=== PATIENT | male | born 1965 | race Two or more races ===

== ENCOUNTER 2020-04-04 15:53 | Inpatient (IN) | payer BC ==
[~2020-04-04] VITALS: Ht 180.3 cm; Wt 111.0 kg
[2020-04-04] VITALS (8 sets, daily range): BP systolic 103–114; BP diastolic 64–70
[2020-04-04] MEDS ORDERED: SODIUM CHLORIDE 0.9% 1,000ML IVBOLUS ONE (17:00)
[2020-04-04] MEDS ORDERED: SODIUM CHLORIDE FLUSH 10ML SYR IVF ONE (17:00)
--- NOTE | 2020-04-04 17:01 | NUR ---
HEARING BECOMING IMPARED, FATIGUE AND FEELING SOB WITH LOSS OF APPETITE. IV FLUIDS INFUSING PER ORDERS.
[2020-04-04 17:19] LABS: CHLORIDE 100 mmol/L (98-107)
[2020-04-04 17:35] LABS: ALANINE AMINOTRANSFERASE 125 U/L (12-78); ALBUMIN 2.3 g/dL (3.4-5.0); ALKALINE PHOSPHATASE 112 U/L (45-117); ANION GAP 10 mmol/L (5-15); BILIRUBIN,TOTAL 1.2 mg/dL (0.2-1.0); CALCIUM 8.4 mg/dL (8.5-10.1); CREATININE 1.14 mg/dL (0.7-1.3); TOTAL PROTEIN 5.6 g/dL (6.4-8.2)
[2020-04-04 17:58] LABS: MEAN CORPUSCULAR HEMOGLOBIN 29.5 pg (27.5-34.5); MEAN CORPUSCULAR HGB CONC 34.1 g/dL (33.2-36.2); MEAN CORPUSCULAR VOLUME 86.4 fL (81-97); MEAN PLATELET VOLUME 11.7 fL (7.4-10.4); RED BLOOD COUNT 2.27 x10^6/uL (4.38-5.82); RED CELL DISTRIBUTION WIDTH 16.8 % (9.4-14.8)
[2020-04-04 17:59] LABS: PLATELET COUNT 25 x10^3/uL (130-400)
--- NOTE | 2020-04-04 18:00 | NUR ---
PT RESTING WITH AT BEDSIDE WHILE AWAITING DISPO, NO DISTRESS.
[2020-04-04 18:12] LABS: MD YES
[2020-04-04 18:13] LABS: BAND#(MANUAL) 0.06 x10^3/uL; BANDS%(MANUAL) 5 % (0-7); LYMPH#(MANUAL) 0.23 x10^3/uL (1-3.4); LYMPHS% (MANUAL) 21 % (22-44); METAMYELOCYTES# (MANUAL) 0.01 x10^3/uL (0-0); METAMYELOCYTES% (MANUAL) 1 % (0-1); MONOS% (MANUAL) 9 % (2-9); SEGS% (MANUAL) 64 % (42-75)
[2020-04-04 18:15] LABS: ANISOCYTOSIS 1+; MICROCYTOSIS 1+
[2020-04-04 18:17] LABS: <PLATELET ESTIMATE> DECREASED; LARGE PLATELETS 1+; OVALOCYTES 1+
[2020-04-04 18:46] LABS: MICROSCOPIC INDICATED
--- NOTE | 2020-04-04 19:00 | NUR ---
Report received from QUE Hankins. This RN to assume care.
--- NOTE | 2020-04-04 19:06 | NUR ---
REPORT TO MICHAEL GREY
[2020-04-04] MEDS ORDERED: SODIUM CHLORIDE 0.9% 1,000 ML IV ONE (19:40)
[2020-04-04] MEDS ORDERED: SODIUM CHLORIDE FLUSH 10ML SYR IVF PRN (20:00)
[2020-04-04] MEDS: SODIUM CHLORIDE 0.9% 1,000 ML IV SCH (20:21)
[2020-04-04 20:26] LABS: IRON LEVEL 182 mcg/dL (65-175); TOTAL IRON BINDING CAPACITY 181 mcg/dL (250-450)
[2020-04-04] MEDS ORDERED: ONDANSETRON ODT 4 MG PO PRN (20:30)
[2020-04-04] MEDS ORDERED: POLYETHYLENE GLYCOL 17 GM PACKET PO PRN (20:30)
[2020-04-04] MEDS ORDERED: BISACODYL 10 MG SUPP PR PRN (20:30)
[2020-04-04 20:35] LABS: % IRON SATURATION 101 % (20-55)
--- NOTE | 2020-04-04 21:09 | NUR ---
Report given to QUE Estes. Advised that patient is still receiving first unit of RBCs. Patient to be transferred to room 437.
[2020-04-04 21:27] LABS: ABSOLUTE RETICS # 0.026 x10^6/uL (0.5-1.5); RETICULOCYTE COUNT % 1.12 % (0.5-1.5)
[2020-04-04 21:28] LABS: BILIRUBIN, DIRECT 0.5 mg/dL (0.1-0.2); BILIRUBIN,INDIRECT 0.7 mg/dL (0.0-2.0); BILIRUBIN,TOTAL 1.2 mg/dL (0.2-1.0)
[2020-04-04 21:29] LABS: RED BLOOD COUNT 2.35 x10^6/uL (4.38-5.82)
[2020-04-04 21:52] LABS: D-DIMER (DIC) 4.19 ug/mlFEU (0.00-0.52); PROTIME 12.2 Seconds (9.6-11.5)
[2020-04-05] VITALS (10 sets, daily range): BP systolic 96–117; BP diastolic 59–71
[2020-04-05] MEDS: SODIUM CHLORIDE 0.9% 1,000 ML IV SCH ×2 (02:35→16:45)
[2020-04-05 05:05] LABS: CHLORIDE 104 mmol/L (98-107)
[2020-04-05 05:12] LABS: ALANINE AMINOTRANSFERASE 106 U/L (12-78); ALBUMIN 2.2 g/dL (3.4-5.0); ALKALINE PHOSPHATASE 112 U/L (45-117); ANION GAP 7 mmol/L (5-15); BILIRUBIN,TOTAL 1.5 mg/dL (0.2-1.0); CALCIUM 7.9 mg/dL (8.5-10.1); CREATININE 0.75 mg/dL (0.7-1.3); TOTAL PROTEIN 5.2 g/dL (6.4-8.2)
[2020-04-05 05:18] LABS: MEAN CORPUSCULAR HEMOGLOBIN 30.1 pg (27.5-34.5); MEAN CORPUSCULAR HGB CONC 33.9 g/dL (33.2-36.2); MEAN CORPUSCULAR VOLUME 88.8 fL (81-97); RED BLOOD COUNT 2.36 x10^6/uL (4.38-5.82); RED CELL DISTRIBUTION WIDTH 16.5 % (9.4-14.8)
[2020-04-05 06:17] LABS: MD YES
[2020-04-05 06:18] LABS: MEAN PLATELET VOLUME 10.4 fL (7.4-10.4)
[2020-04-05 06:19] LABS: PLATELET COUNT 27 x10^3/uL (130-400)
[2020-04-05 06:23] LABS: ANISOCYTOSIS 1+; BAND#(MANUAL) 0.02 x10^3/uL; BANDS%(MANUAL) 2 % (0-7); LYMPH#(MANUAL) 0.21 x10^3/uL (1-3.4); LYMPHS% (MANUAL) 21 % (22-44); MONOS#(MANUAL) 0.06 x10^3/uL (0.3-2.7); MONOS% (MANUAL) 6 % (2-9); OVALOCYTES 1+; REACTIVE LYMPHS # (MANUAL) 0.01 x10^3/uL (0-0); REACTIVE LYMPHS % (MANUAL) 1 % (0-0); SEGS% (MANUAL) 70 % (42-75)
[2020-04-05 06:25] LABS: <PLATELET ESTIMATE> DECREASED; LARGE PLATELETS 1+; MICROCYTOSIS 1+
[2020-04-05] MEDS: SENNA/DOCUSATE TABLET PO SCH (09:00)
[2020-04-05] MEDS ORDERED: FENTANYL PF 100 MCG/2ML ONE (09:12)
[2020-04-05] MEDS ORDERED: NALOXONE 1 MG/ML, 2ML ONE (09:12)
[2020-04-05] MEDS ORDERED: FLUMAZENIL 0.1 MG/1 ML, 5ML ONE (09:12)
[2020-04-05] MEDS ORDERED: MIDAZOLAM 1 MG/ML, 5ML ONE (09:13)
[2020-04-05] MEDS ORDERED: GADOTERATE 7.5 MMOL/15 ML SYR ONE (13:40)
[2020-04-05 17:03] LABS: D-DIMER (DIC) 5.42 ug/mlFEU (0.00-0.52); PROTIME 12.6 Seconds (9.6-11.5)
[2020-04-06] VITALS (7 sets, daily range): BP systolic 101–123; BP diastolic 58–74
[2020-04-06] MEDS: SODIUM CHLORIDE 0.9% 1,000 ML IV SCH (01:41)
[2020-04-06 05:22] LABS: CHLORIDE 107 mmol/L (98-107)
[2020-04-06 05:27] LABS: D-DIMER (DIC) 7.55 ug/mlFEU (0.00-0.52); PROTIME 12.6 Seconds (9.6-11.5)
[2020-04-06 05:32] LABS: ALANINE AMINOTRANSFERASE 102 U/L (12-78); ALKALINE PHOSPHATASE 182 U/L (45-117); ANION GAP 7 mmol/L (5-15); BILIRUBIN,TOTAL 1.7 mg/dL (0.2-1.0); CALCIUM 7.7 mg/dL (8.5-10.1); CREATININE 0.59 mg/dL (0.7-1.3)
[2020-04-06 05:59] LABS: MEAN CORPUSCULAR HEMOGLOBIN 30.1 pg (27.5-34.5); MEAN CORPUSCULAR HGB CONC 34.1 g/dL (33.2-36.2); MEAN CORPUSCULAR VOLUME 88.2 fL (81-97); MEAN PLATELET VOLUME 10.5 fL (7.4-10.4); RED BLOOD COUNT 2.22 x10^6/uL (4.38-5.82); RED CELL DISTRIBUTION WIDTH 16.2 % (9.4-14.8)
[2020-04-06 06:01] LABS: PLATELET COUNT 19 x10^3/uL (130-400)
[2020-04-06 06:02] LABS: MD YES
[2020-04-06 06:10] LABS: <PLATELET ESTIMATE> DECREASED; ANISOCYTOSIS 1+; BAND#(MANUAL) 0.01 x10^3/uL; BANDS%(MANUAL) 1 % (0-7); EOS#(MANUAL) 0.01 x10^3/uL (0.0-0.4); EOS% (MANUAL) 1 % (1-7); LYMPH#(MANUAL) 0.26 x10^3/uL (1-3.4); LYMPHS% (MANUAL) 24 % (22-44); METAMYELOCYTES# (MANUAL) 0.01 x10^3/uL (0-0); METAMYELOCYTES% (MANUAL) 1 % (0-1); MICROCYTOSIS 1+; MONOS#(MANUAL) 0.14 x10^3/uL (0.3-2.7); MONOS% (MANUAL) 13 % (2-9); OVALOCYTES 1+; SEG#(MANUAL) 0.66 x10^3/uL (1.8-6.8); SEGS% (MANUAL) 60 % (42-75)
[2020-04-06 06:11] LABS: LARGE PLATELETS 1+
[2020-04-06] MEDS: SENNA/DOCUSATE TABLET PO SCH (09:00)
[2020-04-07] VITALS (8 sets, daily range): BP systolic 113–140; BP diastolic 72–83
[2020-04-07 05:21] LABS: MEAN CORPUSCULAR HEMOGLOBIN 30.6 pg (27.5-34.5); MEAN CORPUSCULAR VOLUME 89.9 fL (81-97); MEAN PLATELET VOLUME 9.7 fL (7.4-10.4); RED BLOOD COUNT 2.24 x10^6/uL (4.38-5.82)
[2020-04-07] MEDS: SODIUM CHLORIDE 0.9% 1,000 ML IV SCH ×2 (05:27→20:02)
[2020-04-07 05:28] LABS: CHLORIDE 109 mmol/L (98-107)
[2020-04-07 05:48] LABS: ALANINE AMINOTRANSFERASE 87 U/L (12-78); ALBUMIN 1.9 g/dL (3.4-5.0); ALKALINE PHOSPHATASE 147 U/L (45-117); ANION GAP 8 mmol/L (5-15); BILIRUBIN,TOTAL 1.1 mg/dL (0.2-1.0); CALCIUM 7.8 mg/dL (8.5-10.1); CREATININE 0.58 mg/dL (0.7-1.3); TOTAL PROTEIN 4.9 g/dL (6.4-8.2)
[2020-04-07] MEDS ORDERED: DIPHENHYDRAMINE 25 MG CAPSULE PO PRN (06:30)
[2020-04-07] MEDS ORDERED: ACETAMINOPHEN 325 MG TABLET PO PRN (06:30)
[2020-04-07] MEDS ORDERED: ACETAMINOPHEN 325 MG TABLET PO ONE (06:30)
[2020-04-07 07:12] LABS: BASOPHILS # (AUTO) 0.02 x10^3/uL (0-0.1); BASOPHILS % (AUTO) 1 % (0-1); EOSINOPHILS % (AUTO) 0 % (1-7); LYMPHOCYTES # (AUTO) 0.48 x10^3/uL (1-3.4); LYMPHOCYTES % (AUTO) 33 % (22-44); MD MORPH REVIEW ONLY; MONOCYTES # (AUTO) 0.25 x10^3/uL (0.2-0.8); MONOCYTES % (AUTO) 17 % (2-9); NEUTROPHILS # (AUTO) 0.71 x10^3/uL (1.8-6.8); NEUTROPHILS % (AUTO) 49 % (42-75)
[2020-04-07 07:14] LABS: PLATELET COUNT 20 x10^3/uL (130-400)
[2020-04-07 07:17] LABS: ANISOCYTOSIS 1+
[2020-04-07 07:18] LABS: OVALOCYTES 1+
[2020-04-07 07:19] LABS: <PLATELET ESTIMATE> DECREASED; <PLT MORPHOLOGY> NORMAL PLT MORPH
[2020-04-07 08:04] LABS: PROTIME 12.9 Seconds (9.6-11.5)
[2020-04-07 08:38] LABS: D-DIMER (DIC) 10.35 ug/mlFEU (0.00-0.52)
[2020-04-07] MEDS: SENNA/DOCUSATE TABLET PO SCH (09:40)
[2020-04-08 00:37] VITALS: BP 119/74
[2020-04-08 05:09] LABS: ALBUMIN 1.9 g/dL (3.4-5.0); ANION GAP 6 mmol/L (5-15); CALCIUM 7.7 mg/dL (8.5-10.1); CHLORIDE 109 mmol/L (98-107); MEAN CORPUSCULAR HEMOGLOBIN 30.2 pg (27.5-34.5); MEAN CORPUSCULAR VOLUME 88.8 fL (81-97); MEAN PLATELET VOLUME 10.5 fL (7.4-10.4); RED BLOOD COUNT 2.47 x10^6/uL (4.38-5.82); RED CELL DISTRIBUTION WIDTH 15.9 % (9.4-14.8)
[2020-04-08 05:12] LABS: ALANINE AMINOTRANSFERASE 83 U/L (12-78); ALKALINE PHOSPHATASE 140 U/L (45-117); BILIRUBIN,TOTAL 1.3 mg/dL (0.2-1.0); CREATININE 0.53 mg/dL (0.7-1.3); TOTAL PROTEIN 5.2 g/dL (6.4-8.2)
[2020-04-08 05:39] LABS: PLATELET COUNT 26 x10^3/uL (130-400)
[2020-04-08 06:08] LABS: MD YES
[2020-04-08 06:12] LABS: ANISOCYTOSIS 1+; BAND#(MANUAL) 0.02 x10^3/uL; BANDS%(MANUAL) 1 % (0-7); LYMPHS% (MANUAL) 40 % (22-44); MONOS#(MANUAL) 0.15 x10^3/uL (0.3-2.7); MONOS% (MANUAL) 10 % (2-9); OVALOCYTES 1+; SEG#(MANUAL) 0.74 x10^3/uL (1.8-6.8); SEGS% (MANUAL) 49 % (42-75)
[2020-04-08 06:13] LABS: <PLATELET ESTIMATE> DECREASED; LARGE PLATELETS 1+
[2020-04-08 07:02] VITALS: BP 124/71
[2020-04-08] MEDS: SODIUM CHLORIDE 0.9% 1,000 ML IV SCH ×2 (08:39→22:09)
[2020-04-08] MEDS: SENNA/DOCUSATE TABLET PO SCH (08:39)
[2020-04-08 13:47] VITALS: BP 131/83
[2020-04-08 18:23] VITALS: BP 137/81
[2020-04-09 02:27] VITALS: BP 127/76
[2020-04-09 05:56] LABS: MD YES; MEAN CORPUSCULAR HEMOGLOBIN 30.4 pg (27.5-34.5); MEAN CORPUSCULAR HGB CONC 34.3 g/dL (33.2-36.2); MEAN CORPUSCULAR VOLUME 88.7 fL (81-97); RED BLOOD COUNT 2.39 x10^6/uL (4.38-5.82); RED CELL DISTRIBUTION WIDTH 16.4 % (9.4-14.8)
[2020-04-09 05:58] LABS: PLATELET COUNT 31 x10^3/uL (130-400)
[2020-04-09 06:01] LABS: ANISOCYTOSIS 1+; BAND#(MANUAL) 0.03 x10^3/uL; BANDS%(MANUAL) 2 % (0-7); LYMPH#(MANUAL) 0.45 x10^3/uL (1-3.4); LYMPHS% (MANUAL) 32 % (22-44); MONOS% (MANUAL) 14 % (2-9); OVALOCYTES 1+; SEG#(MANUAL) 0.73 x10^3/uL (1.8-6.8); SEGS% (MANUAL) 52 % (42-75)
[2020-04-09 06:02] LABS: <PLATELET ESTIMATE> DECREASED; LARGE PLATELETS 1+
[2020-04-09 07:45] VITALS: BP 140/83
[2020-04-09] MEDS: SENNA/DOCUSATE TABLET PO SCH (08:52)
[2020-04-09 09:13] LABS: ABSOLUTE RETICS # 0.016 x10^6/uL (0.5-1.5); RED BLOOD COUNT 2.67 x10^6/uL (4.38-5.82); RETICULOCYTE COUNT % 0.61 % (0.5-1.5)
[2020-04-09 09:20] LABS: CHLORIDE 111 mmol/L (98-107)
[2020-04-09 10:22] LABS: ALANINE AMINOTRANSFERASE 77 U/L (12-78); ALKALINE PHOSPHATASE 128 U/L (45-117); ANION GAP 7 mmol/L (5-15); CALCIUM 7.9 mg/dL (8.5-10.1); TOTAL PROTEIN 5.8 g/dL (6.4-8.2)
[2020-04-09] MEDS ORDERED: POTASSIUM CHLORIDE 20 MEQ TAB.ER.PRT PO ONE (10:30)
[2020-04-09 13:03] VITALS: BP 129/82
[2020-04-09 19:43] VITALS: BP 134/74
[2020-04-09] MEDS ORDERED: SODIUM CHLORIDE 0.9% 1,000 ML IV SCH (20:21)
[2020-04-10 02:54] VITALS: BP 141/89
[2020-04-10 05:25] LABS: CALCIUM 7.8 mg/dL (8.5-10.1); CHLORIDE 111 mmol/L (98-107)
[2020-04-10 05:31] LABS: ALANINE AMINOTRANSFERASE 68 U/L (12-78); ALBUMIN 1.9 g/dL (3.4-5.0); ALKALINE PHOSPHATASE 124 U/L (45-117); ANION GAP 5 mmol/L (5-15); CREATININE 0.58 mg/dL (0.7-1.3); TOTAL PROTEIN 5.9 g/dL (6.4-8.2)
[2020-04-10 06:07] LABS: MEAN CORPUSCULAR HEMOGLOBIN 30.2 pg (27.5-34.5); MEAN CORPUSCULAR HGB CONC 33.9 g/dL (33.2-36.2); MEAN CORPUSCULAR VOLUME 89.3 fL (81-97); MEAN PLATELET VOLUME 9.6 fL (7.4-10.4); RED BLOOD COUNT 2.57 x10^6/uL (4.38-5.82); RED CELL DISTRIBUTION WIDTH 16.6 % (9.4-14.8)
[2020-04-10 06:11] LABS: MD YES; PLATELET COUNT 33 x10^3/uL (130-400)
[2020-04-10 06:14] LABS: BAND#(MANUAL) 0.02 x10^3/uL; BANDS%(MANUAL) 1 % (0-7); LYMPH#(MANUAL) 0.32 x10^3/uL (1-3.4); LYMPHS% (MANUAL) 20 % (22-44); MONOS#(MANUAL) 0.14 x10^3/uL (0.3-2.7); MONOS% (MANUAL) 9 % (2-9); SEG#(MANUAL) 1.12 x10^3/uL (1.8-6.8); SEGS% (MANUAL) 70 % (42-75)
[2020-04-10 06:15] LABS: <PLATELET ESTIMATE> DECREASED; <PLT MORPHOLOGY> NORMAL PLT MORPH; ANISOCYTOSIS 1+; OVALOCYTES 1+
[2020-04-10] MEDS ORDERED: POTASSIUM CHLORIDE 20 MEQ TAB.ER.PRT PO ONE (08:30)
[2020-04-10 09:02] VITALS: BP 124/81
[2020-04-10] MEDS: SENNA/DOCUSATE TABLET PO SCH (09:37)
[2020-04-10] MEDS: CARVEDILOL 3.125 MG TABLET PO SCH ×2 (09:38→17:32)
[2020-04-10 09:41] LABS: D-DIMER 16.7 ug/mlFEU (0.00-0.52); INTERNATIONAL NORMALIZED RATIO 1.27 (0.93-1.1); PROTHROMBIN TIME 13.1 Seconds (9.6-11.5)
[2020-04-10 15:59] VITALS: BP 128/77
[2020-04-10 18:51] VITALS: BP 122/75
[2020-04-11 00:48] VITALS: BP 123/62
[2020-04-11 05:41] LABS: MEAN CORPUSCULAR HEMOGLOBIN 30.3 pg (27.5-34.5); MEAN CORPUSCULAR HGB CONC 33.9 g/dL (33.2-36.2); MEAN CORPUSCULAR VOLUME 89.4 fL (81-97); MEAN PLATELET VOLUME 9.8 fL (7.4-10.4); RED BLOOD COUNT 2.39 x10^6/uL (4.38-5.82)
[2020-04-11 05:47] LABS: PLATELET COUNT 36 x10^3/uL (130-400)
[2020-04-11 05:55] LABS: CHLORIDE 107 mmol/L (98-107)
[2020-04-11 06:02] LABS: ALANINE AMINOTRANSFERASE 55 U/L (12-78); ALBUMIN 1.8 g/dL (3.4-5.0); ALKALINE PHOSPHATASE 113 U/L (45-117); ANION GAP 7 mmol/L (5-15); CALCIUM 7.7 mg/dL (8.5-10.1); CREATININE 0.66 mg/dL (0.7-1.3); TOTAL PROTEIN 5.9 g/dL (6.4-8.2)
[2020-04-11] MEDS: CARVEDILOL 3.125 MG TABLET PO SCH (06:07)
[2020-04-11 06:14] VITALS: BP 102/67
[2020-04-11 06:14] LABS: MD YES
[2020-04-11 06:18] LABS: BAND#(MANUAL) 0.02 x10^3/uL; BANDS%(MANUAL) 1 % (0-7); LYMPH#(MANUAL) 0.34 x10^3/uL (1-3.4); LYMPHS% (MANUAL) 21 % (22-44); MONOS#(MANUAL) 0.16 x10^3/uL (0.3-2.7); MONOS% (MANUAL) 10 % (2-9); SEG#(MANUAL) 1.09 x10^3/uL (1.8-6.8); SEGS% (MANUAL) 68 % (42-75)
[2020-04-11 06:19] LABS: <PLATELET ESTIMATE> DECREASED; ANISOCYTOSIS 1+; LARGE PLATELETS 1+; OVALOCYTES 1+
[2020-04-11] MEDS: SENNA/DOCUSATE TABLET PO SCH (08:24)
[2020-04-11] MEDS ORDERED: CARV3.1212 PO (10:08)
[2020-04-11] MEDS ORDERED: Senna/Docusate PO (10:08)
== END 2020-04-11 11:40 | disposition home or self-care (01) | DRG 809 ==
LOC: ED 17:45 → EDIP 19:41 → 4NW 21:47 → DCLOUNGE 04-11 11:33
PROVIDERS: ADMIT Family Medicine; ATTEND Internal Medicine
PROC: 30233N1 Transfusion of Nonautologous Red Blood Cells into Peripheral Vein, Percutaneous Approach (ICD-10-PCS; principal; 2020-04-04)
PROC: 07DR3ZX Extraction of Iliac Bone Marrow, Percutaneous Approach, Diagnostic (ICD-10-PCS; 2020-04-05)
PROC: 30233R1 Transfusion of Nonautologous Platelets into Peripheral Vein, Percutaneous Approach (ICD-10-PCS; 2020-04-06)
DX: D61.818 Other pancytopenia (principal); D75.81 Myelofibrosis; E87.1 Hypo-osmolality and hyponatremia; N13.30 Unspecified hydronephrosis; E66.9 Obesity, unspecified; E83.119 Hemochromatosis, unspecified; E83.51 Hypocalcemia; E87.6 Hypokalemia; G47.00 Insomnia, unspecified; H91.93 Unspecified hearing loss, bilateral; I10 Essential (primary) hypertension; J32.9 Chronic sinusitis, unspecified; K76.0 Fatty (change of) liver, not elsewhere classified; Z20.828 Contact with and (suspected) exposure to other viral communicable diseases; Z80.0 Family history of malignant neoplasm of digestive organs; Z80.3 Family history of malignant neoplasm of breast; Z80.6 Family history of leukemia; Z68.34 Body mass index [BMI] 34.0-34.9, adult
CPT/HCPCS: 36415; 36430; 38222; 70450; 70553; 71045; 74018; 76700; 77012; 80053; 80074; 81001; 82247; 82248; 82330; 82607; 82728; 83010; 83540; 83550; 83615; 83735; 84550; 85025; 85045; 85049; 85060; 85379; 85384; 85610; 85730; 86644; 86645; 86705; 86850; 86880; 86900; 86923; 87086; 87806; 88305; 88311; 88313; 88341; 88342; 93005; 99156; 99157; 99291; G0378; J2250; J3010; A9575; G0475; J2310; J7030; P9016; P9035; P9040; Q0163

== ENCOUNTER 2020-04-17 15:35 | Outpatient (CLI) | payer BC ==
[~2020-04-17 15:35] MED LIST: CARV3.1212 PO; Senna/Docusate PO
== END 2020-04-17 23:59 | disposition home or self-care (01) ==
LOC: RAD 15:35
PROVIDERS: ATTEND Internal Medicine Hematology & Oncology
DX: I82.403 Acute embolism and thrombosis of unspecified deep veins of lower extremity, bilateral (principal); D75.81 Myelofibrosis
CPT/HCPCS: 93970

== ENCOUNTER 2020-04-28 15:03 | Inpatient (IN) | payer BC ==
[2020-04-28] VITALS (9 sets, daily range): BP systolic 115–130; BP diastolic 76–88
[~2020-04-28] VITALS: Ht 177.8 cm; Wt 119.9 kg
--- NOTE | 2020-04-28 15:26 | NUR ---
THIS IS A 55 YO MALE BIB [facility] FROM HOME FOR NEW ONSET JAUNDICE STARTING YESTERDAY PER FAMILY, MILD SOB/WEAKNESS, AND INCREASED CONFUSION OVER THE LAST FEW WEEKS. PATIENT A&OX4, MILD EXPIRATORY WHEEZES NOTED THROUGHOUT WITH MILDLY LABORED BREATHING, MAINTAINING 95-96% ON RA, PLACED ON 2L NC PER PATIENT REQUEST FOR COMFORT. PER [facility], PATIENT RECENTLY HAD BONE MARROW BX AND LIVER BX DONE AT [facility]. JAUNDICED NOTICED DIFFUSELY OVER BODY AND SCLERA. PRESSURE DRESSING ON RIGHT JUGLULAR FROM [facility] (MAYBE FROM BX) AND PADDED SACRAL DRESSING ON COCCYX FROM BONE MARROW BX, WHICH WAS SATURATED AND REMOVED, JOANNA FRIEDMAN TO EVALUATE WOUND. ALL MONITORING IN PLACE, VSS, NADN AT THIS TIME. CALL LIGHT IN REACH, PER [facility], FAMILY IN EN ROUTE, WILL OBTAIN MORE HX WHEN FAMILY HERE, PATIENT DOES NOT KNOW HIS MEDICAL HX/SURGICAL HX/MEDS.
[2020-04-28] MEDS ORDERED: SODIUM CHLORIDE FLUSH 10ML SYR IVF ONE (15:30)
[2020-04-28] MEDS ORDERED: SODIUM CHLORIDE 0.9% 1,000 ML IV ONE (15:30)
[2020-04-28 15:39] LABS: MEAN CORPUSCULAR HEMOGLOBIN 30.7 pg (27.5-34.5); RED BLOOD COUNT 2.24 x10^6/uL (4.38-5.82)
[2020-04-28 15:46] LABS: ALANINE AMINOTRANSFERASE 494 U/L (12-78); ALBUMIN 1.1 g/dL (3.4-5.0); ANION GAP 14 mmol/L (5-15); CALCIUM 7.8 mg/dL (8.5-10.1); CHLORIDE 111 mmol/L (98-107); CREATININE 1.53 mg/dL (0.7-1.3)
[2020-04-28 15:50] LABS: ALKALINE PHOSPHATASE 130 U/L (45-117); TOTAL PROTEIN 4.5 g/dL (6.4-8.2)
[2020-04-28 16:11] LABS: BILIRUBIN,TOTAL 20.1 mg/dL (0.2-1.0)
[2020-04-28 16:22] LABS: PLATELET COUNT 13 x10^3/uL (130-400)
[2020-04-28 16:23] LABS: MD YES
--- NOTE | 2020-04-28 16:23 | NUR ---
CRITICAL VALUES REPORTED TO PROVIDER
[2020-04-28] MEDS ORDERED: SODIUM CHLORIDE 0.9% 1,000ML IVBOLUS ONE (16:30)
[2020-04-28] MEDS ORDERED: CEFTRIAXONE PMX 1GM/50ML 50 ML IVPB ONE (16:30)
--- NOTE | 2020-04-28 16:30 | NUR ---
PATIENT TO CT
--- NOTE | 2020-04-28 16:30 | NUR ---
UA COLLECTED AND SENT
[2020-04-28 16:33] LABS: BAND#(MANUAL) 0.02 x10^3/uL; BANDS%(MANUAL) 3 % (0-7); SEG#(MANUAL) 0.71 x10^3/uL (1.8-6.8); SEGS% (MANUAL) 89 % (42-75)
--- NOTE | 2020-04-28 16:35 | NUR ---
PER BLOOD BANK "PATIENT HAS HX ANTIBODY, HE HAS UNDERTERMINED ANTIBODIES SO IT WILL TAKE LONGER THAN NORMAL FOR THE SCREENING". NOTIFIED
[2020-04-28 16:37] LABS: LYMPH#(MANUAL) 0.05 x10^3/uL (1-3.4); LYMPHS% (MANUAL) 6 % (22-44); MONOS#(MANUAL) 0.02 x10^3/uL (0.3-2.7); MONOS% (MANUAL) 2 % (2-9)
[2020-04-28 16:40] LABS: ANISOCYTOSIS 1+; OVALOCYTES 1+; POLYCHROMASIA 1+
[2020-04-28 16:41] LABS: <PLATELET ESTIMATE> DECREASED
--- NOTE | 2020-04-28 16:42 | NUR ---
PER DR. ROBERTS, CANCELLING ORDER FOR ABX, NO SUSPECTED SOURCE OF INFECTION, SIRS CRITERIA RESULT OF BONE MARROW SUPPRESSION, LIVER FAILURE, AND UNKNOWN POTENTIAL CANCER.
--- NOTE | 2020-04-28 16:48 | NUR ---
PER , PATIENT HAS ONCOLOGY APPT THURSDAY, [facility] HAD SENT BX TO [place] AND WAITING FOR RESULTS.
[2020-04-28 16:52] LABS: MICROSCOPIC INDICATED
--- NOTE | 2020-04-28 18:00 | NUR ---
PLATELET INFUSION STARTED. VERIFIED WITH QUE SANDOVAL
--- NOTE | 2020-04-28 18:16 | NUR ---
PLATELET INFUSION COMPLETE. NO REACTION NOTED. VSS.
--- NOTE | 2020-04-28 18:33 | NUR ---
CALL PLACED TO BLOOD BANK, STILL WAITING ON ANTIBODY TEST TO BE COMPLETED
--- NOTE | 2020-04-28 19:26 | NUR ---
TASK RN: BLOOD REQUEST SENT TO BB. REPORT TO ONC QUE CAMPBELL. PT PREPARED FOR TRANSPORT POST BLOOD.
--- NOTE | 2020-04-28 19:45 | NUR ---
TASK RN: BLOOD INITIATED. PT/SO MADE AWARE OF S/S OF TRANSFUSION RXN AND AGREE TO NOTIFY STAFF OF ANY OCCURENCE. BLOOD CONSENT SIGNED AND WITNESSED BY PRIMARY RN CLIFTON Vora PRIOR TO BLOOD ADMINISTRATION Addendum: 04/28/20 at 1948 by LWEGENER NEUTROPENIC PRECAUTIONS IN PLACE
--- NOTE | 2020-04-28 19:57 | NUR ---
TASK RN: NO S/S OF TRANSFUSION REACTION. PT DENIES PAIN, VSS. LUNGS CLEAR TO AUSCULTATION
[2020-04-28] MEDS ORDERED: NYST1000 PO (20:28)
[2020-04-28] MEDS ORDERED: ONDANSETRON 2MG/ML, 2ML IVPush PRN (20:30)
[2020-04-28] MEDS ORDERED: HYDROmorphone 2 MG/ML, 1ML IVPush PRN (20:30)
[2020-04-28] MEDS ORDERED: DOCUSATE 100 MG CAPSULE PO PRN (20:30)
[2020-04-28] MEDS ORDERED: PRED5TAB19 PO (20:30)
[2020-04-28] MEDS ORDERED: OXYcodone IR 5MG TABLET PO PRN (20:30)
[2020-04-28] MEDS ORDERED: LIDODERM 5% PATCH TD PRN (20:30)
[2020-04-28] MEDS ORDERED: LACTATED RINGERS 1,000 ML IV SCH (20:30)
[2020-04-28] MEDS ORDERED: MELATONIN 5 MG TABLET PO PRN (20:30)
[2020-04-28] MEDS ORDERED: SODI650T PO (20:49)
[2020-04-28] MEDS ORDERED: SODIUM BICARBONATE 8.4% 100 MEQ in DEXTROSE 5% 1,000 ML IV SCH (22:00)
[2020-04-29] VITALS (9 sets, daily range): BP systolic 109–130; BP diastolic 72–84
[2020-04-29 04:40] LABS: MEAN CORPUSCULAR HEMOGLOBIN 31.2 pg (27.5-34.5); MEAN CORPUSCULAR HGB CONC 34.4 g/dL (33.2-36.2); MEAN PLATELET VOLUME 10.1 fL (7.4-10.4); RED BLOOD COUNT 2.18 x10^6/uL (4.38-5.82); RED CELL DISTRIBUTION WIDTH 17.6 % (9.4-14.8)
[2020-04-29 04:43] LABS: ALANINE AMINOTRANSFERASE 497 U/L (12-78); ALBUMIN 1.1 g/dL (3.4-5.0); ANION GAP 13 mmol/L (5-15); CALCIUM 7.7 mg/dL (8.5-10.1); CHLORIDE 113 mmol/L (98-107)
[2020-04-29 04:45] LABS: ALKALINE PHOSPHATASE 118 U/L (45-117)
[2020-04-29 04:54] LABS: PLATELET COUNT 11 x10^3/uL (130-400)
[2020-04-29 05:07] LABS: CREATININE 1.59 mg/dL (0.7-1.3)
[2020-04-29 05:08] LABS: TOTAL PROTEIN 4.1 g/dL (6.4-8.2)
[2020-04-29 06:06] LABS: MD YES
[2020-04-29 06:14] LABS: SEG#(MANUAL) 0.61 x10^3/uL (1.8-6.8); SEGS% (MANUAL) 87 % (42-75)
[2020-04-29 06:15] LABS: BAND#(MANUAL) 0.01 x10^3/uL; BANDS%(MANUAL) 1 % (0-7); LYMPH#(MANUAL) 0.05 x10^3/uL (1-3.4); LYMPHS% (MANUAL) 7 % (22-44); MONOS#(MANUAL) 0.04 x10^3/uL (0.3-2.7); MONOS% (MANUAL) 5 % (2-9)
[2020-04-29 06:16] LABS: ANISOCYTOSIS 1+; OVALOCYTES 1+; POLYCHROMASIA 1+
[2020-04-29 06:17] LABS: <PLATELET ESTIMATE> DECREASED; <PLT MORPHOLOGY> NORMAL PLT MORPH
[2020-04-29 12:32] LABS: MEAN CORPUSCULAR HEMOGLOBIN 30.9 pg (27.5-34.5); MEAN CORPUSCULAR HGB CONC 34.6 g/dL (33.2-36.2); MEAN PLATELET VOLUME 10.1 fL (7.4-10.4)
[2020-04-29 12:46] LABS: PLATELET COUNT 11 x10^3/uL (130-400)
[2020-04-29 13:09] LABS: MD YES
[2020-04-29 13:12] LABS: LYMPH#(MANUAL) 0.07 x10^3/uL (1-3.4); LYMPHS% (MANUAL) 10 % (22-44); METAMYELOCYTES# (MANUAL) 0.01 x10^3/uL (0-0); METAMYELOCYTES% (MANUAL) 2 % (0-1); MONOS#(MANUAL) 0.01 x10^3/uL (0.3-2.7); MONOS% (MANUAL) 2 % (2-9); SEGS% (MANUAL) 86 % (42-75)
[2020-04-29 13:13] LABS: ANISOCYTOSIS 1+; OVALOCYTES 1+; POLYCHROMASIA 1+
[2020-04-29 13:14] LABS: MICROCYTOSIS 1+
[2020-04-29 13:15] LABS: <PLATELET ESTIMATE> DECREASED; <PLT MORPHOLOGY> NORMAL PLT MORPH; ECHINOCYTES 1+
[2020-04-30 00:47] VITALS: BP 120/78
[2020-04-30 06:11] LABS: MEAN CORPUSCULAR HEMOGLOBIN 31.1 pg (27.5-34.5); MEAN CORPUSCULAR HGB CONC 34.5 g/dL (33.2-36.2); MEAN PLATELET VOLUME 9.9 fL (7.4-10.4); RED BLOOD COUNT 2.71 x10^6/uL (4.38-5.82); RED CELL DISTRIBUTION WIDTH 17.6 % (9.4-14.8)
[2020-04-30 06:15] LABS: ALANINE AMINOTRANSFERASE 592 U/L (12-78); ALBUMIN 1.2 g/dL (3.4-5.0); ANION GAP 15 mmol/L (5-15); CALCIUM 8.2 mg/dL (8.5-10.1); CHLORIDE 112 mmol/L (98-107)
[2020-04-30 06:17] LABS: ALKALINE PHOSPHATASE 125 U/L (45-117)
[2020-04-30 06:21] LABS: CREATININE 1.82 mg/dL (0.7-1.3); TOTAL PROTEIN 4.2 g/dL (6.4-8.2)
[2020-04-30 06:22] LABS: BILIRUBIN,TOTAL 24.2 mg/dL (0.2-1.0)
[2020-04-30 06:46] LABS: PLATELET COUNT 9 x10^3/uL (130-400)
[2020-04-30 07:14] VITALS: BP 111/66
[2020-04-30 07:28] LABS: MD YES
[2020-04-30 07:33] LABS: BAND#(MANUAL) 0.01 x10^3/uL; BANDS%(MANUAL) 1 % (0-7); LYMPH#(MANUAL) 0.01 x10^3/uL (1-3.4); LYMPHS% (MANUAL) 1 % (22-44); MONOS#(MANUAL) 0.02 x10^3/uL (0.3-2.7); MONOS% (MANUAL) 4 % (2-9); SEG#(MANUAL) 0.56 x10^3/uL (1.8-6.8); SEGS% (MANUAL) 94 % (42-75)
[2020-04-30 07:34] LABS: <PLATELET ESTIMATE> DECREASED; ANISOCYTOSIS 1+; ECHINOCYTES 1+; MICROCYTOSIS 1+; OVALOCYTES 1+; POLYCHROMASIA 1+
[2020-04-30 07:58] LABS: LARGE PLATELETS 1+
[2020-04-30] MEDS ORDERED: ACETAMINOPHEN 325 MG TABLET PO ONE (09:30)
[2020-04-30] MEDS ORDERED: DIPHENHYDRAMINE 25 MG CAPSULE PO ONE (09:30)
[2020-04-30] MEDS ORDERED: FUROSEMIDE 40 MG/4 ML IV ONE (09:30)
[2020-04-30 15:34] VITALS: BP 101/67
== END 2020-04-30 18:06 | disposition hospice, home (50) | DRG 871 ==
LOC: ED 17:00 → EDIP 18:31 → 4NW 20:05
PROVIDERS: ADMIT Family Medicine; ATTEND Hospitalist
PROC: 0T9B70Z Drainage of Bladder with Drainage Device, Via Natural or Artificial Opening (ICD-10-PCS; principal; 2020-04-28)
PROC: 30233R1 Transfusion of Nonautologous Platelets into Peripheral Vein, Percutaneous Approach (ICD-10-PCS; 2020-04-28)
PROC: 30233N1 Transfusion of Nonautologous Red Blood Cells into Peripheral Vein, Percutaneous Approach (ICD-10-PCS; 2020-04-28)
DX: A41.9 Sepsis, unspecified organism (principal); G93.41 Metabolic encephalopathy; K72.00 Acute and subacute hepatic failure without coma; K76.7 Hepatorenal syndrome; N17.0 Acute kidney failure with tubular necrosis; D61.818 Other pancytopenia; D84.9 Immunodeficiency, unspecified; E87.2 Acidosis; J98.11 Atelectasis; N13.30 Unspecified hydronephrosis; J90 Pleural effusion, not elsewhere classified; R18.8 Other ascites; D46.9 Myelodysplastic syndrome, unspecified; D73.5 Infarction of spleen; J32.3 Chronic sphenoidal sinusitis; N18.2 Chronic kidney disease, stage 2 (mild); Z51.5 Encounter for palliative care; Z80.0 Family history of malignant neoplasm of digestive organs; Z80.3 Family history of malignant neoplasm of breast; Z80.6 Family history of leukemia; R16.1 Splenomegaly, not elsewhere classified; Z90.49 Acquired absence of other specified parts of digestive tract; Z88.0 Allergy status to penicillin
CPT/HCPCS: 36415; 36430; 70450; 71045; 71275; 74177; 80053; 81001; 82140; 83605; 83690; 83880; 84145; 85025; 86850; 86870; 86900; 86902; 86922; 86923; 87040; 87086; 96360; 96361; G0378; J1170; J1940; J7070; J7030; J7120; P9016; P9037; P9040; Q0163